=== PATIENT | male | born 1940 | race Caucasian/White ===

== ENCOUNTER 2016-12-17 12:11 | Emergency (ER) | payer MEDICARE, OTHER ==
[~2016-12-17] VITALS: Ht 167.6 cm; Wt 89.0 kg
[2016-12-17 12:21] VITALS: Ht 167.6 cm; Wt 89.0 kg
[2016-12-17 14:57] LABS: CALCIUM 9.7 mg/dl (8.4-10.2); CREATININE 0.62 mg/dl (0.61-1.24); POTASSIUM 5.1 mmol/L (3.5-5.1)
--- NOTE | 2016-12-17 15:43 | ERD ---
ER Documentation Chief Complaint Date/Time DATE: 12/17/16 TIME: 15:41 Chief Complaint random bs taken, high per family, aymptomatic, no meds taking HPI This is a 76-year-old male with a history of diabetes on oral medication but has not taken his medication in a year. Patient is having polyuria and some occasional polydipsia but no weight loss. He does not have a primary care physician and they are here for medications to help his blood sugar. He is relatively asymptomatic. Is any chest pain abdominal pain vomiting diarrhea. He is trying to eat as healthy as he can to keep his blood sugar under control. ROS All systems reviewed and are negative except as per history of present illness. FmHx Family History: No coronary disease Physical Exam Vitals Vital Signs Date Time Temp Pulse Resp B/P Pulse Ox O2 Delivery O2 Flow Rate FiO2 12/17/16 12:21 97.4 71 18 137/89 99 Physical Exam Const: [Well-developed, well-nourished] Head: [Atraumatic, normocephalic] Eyes: [Normal Conjunctiva, PERRLA, EOMI, normal sclera, no nystagmus] ENT: [Normal External Ears, Nose and Mouth, moist mucus membranes.] Neck: [Full range of motion. No meningismus, no lymphadenopathy.] Resp: [Clear to auscultation bilaterally, no wheezing, rhonchi, rales] Cardio: [Regular rate and rhythm, no murmurs, S1 S2 present] Abd: [Soft, non tender x 4, non distended. Normal bowel sounds, no guarding or rebound, no pulsitile abdominal masses or bruits] Skin: [No petechiae or rashes, no ecchymosis , no maculopapular rash] Back: [No midline or flank tenderness] Ext: [No cyanosis, or edema, FROM x 4, normal inspection, neurovascularly intact x 4] Neur: [Awake and alert, STR 5/5 x 4, sensation intact x 4, no focal findings, cerebellum intact] Psych: [Normal Mood and Affect] Result Diagram: 12/17/16 1420 Results 24 hrs Laboratory Tests Test 12/17/16 14:20 Sodium Level 140mmol/L Potassium Level 5.1mmol/L Chloride Level 97mmol/L Carbon Dioxide Level 30mmol/L Anion Gap 18 Blood Urea Nitrogen 9mg/dl Creatinine 0.62mg/dl Glucose Level 323mg/dl Calcium Level 9.7mg/dl Procedures/MDM Patient's glucose is 323 we will give a small dose of insulin here and discharge him home on metformin Departure Diagnosis: Primary Impression: Uncontrolled diabetes mellitus Diabetes mellitus type: type 2 Diabetes mellitus complication status: without complication Diabetes mellitus longterm insulin use: unspecified longterm insulin use status Qualified Code: E11.65 - Uncontrolled diabetes mellitus type 2 without complications, unspecified longterm insulin use status Condition: Stable ADOLFO OLIVER DO Dec 17, 2016 15:43
[2016-12-17] MEDS ORDERED: MTF1000T PO (15:46)
[2016-12-17] MEDS ORDERED: INSULIN REGULAR, HUMAN 100 UNIT/1 ML 3ML VIAL SC ONE (16:00)
== END 2016-12-17 15:57 | disposition home or self-care (01) ==
LOC: FTE 12:11
DX: E11.65 Type 2 diabetes mellitus with hyperglycemia (principal)
CPT/HCPCS: 36415; 80048; 82962; 96372; 99284; J1815